=== PATIENT | male | born 1950 ===

== ENCOUNTER 2019-10-07 19:49 | Inpatient (IN) ==
[2019-10-07] MEDS ORDERED: DEXTROSE 50% 25 GM/50 ML SYRINGE IV PRN (21:52)
[2019-10-07] MEDS ORDERED: DEXTROSE 50% 25 GM/50 ML VIAL IV PRN (21:52)
[2019-10-07] MEDS ORDERED: ACETAMINOPHEN 325 MG TABLET PO PRN (21:52)
[2019-10-07] MEDS ORDERED: GLUCAGON 1 MG VIAL IM PRN (21:52)
[2019-10-07] MEDS ORDERED: ONDANSETRON 4 MG/2 ML VIAL IV PRN (21:52)
[2019-10-07] MEDS ORDERED: DEXTROSE 10% 250 ML BAG IV PRN (22:38)
[2019-10-07] MEDS: INSULIN REGULAR 100 UNIT/ML SUBCUT SCH (22:43)
[2019-10-07] MEDS ORDERED: TICAGRELOR 90 MG TABLET PO ONE (22:46)
[2019-10-07] MEDS ORDERED: LIDOCAINE 1% 20 ML VIAL ONE (23:12)
[2019-10-07] MEDS ORDERED: fentaNYL 100 MCG/2 ML VIAL ONE (23:12)
[2019-10-07] MEDS ORDERED: MIDAZOLAM 2 MG/2 ML VIAL ONE (23:12)
[2019-10-07] MEDS ORDERED: HEPARIN/NACL 0.9% 2 UNITS/ML 1,500 ML IV ONE (23:12)
[2019-10-08] MEDS: NITROGLYCERIN 2% OINT 1 INCH/GM PACK TOP SCH ×4 (00:30→18:10)
[2019-10-08] MEDS ORDERED: SODIUM CHLORIDE 0.9% 1,000 ML IV SCH (00:30)
[2019-10-08 01:15] LABS: Troponin I 10.3 NG/ML (0.00-0.045)
[2019-10-08 05:49] LABS: Troponin I 11.4 NG/ML (0.00-0.045)
[2019-10-08 07:03] LABS: Basophils # 0.1 10*3/uL (0.0-0.2); Basophils % 0.6 % (0.0-0.8); Eosinophils # 0.1 10*3/uL (0.0-0.87); Eosinophils % 0.7 % (0.00-10.9); Hematocrit 32.5 VOL% (42.0-52.0); Hemoglobin 10.4 GM/DL (14.0-18.0); Immature Granulocytes % 0.4 %; Immature Granulocytes Absolute 0.05 #; Lymphocytes # 1.1 10*3/uL (1.4-4.0); Lymphocytes % 9.2 % (21.2-54.2); Mean Platelet Volume 10.4 FL (9.6-12.0); Monocytes % 9.7 % (1.7-12.7); Neutrophils % 79.4 % (38.7-73.9); Platelet Count 286 T/CUMM (130-400); Red Blood Count 3.61 MC/CUMM (3.8-5.5); Red Cell Distribution Width 14.7 % (9.3-17.3); White Blood Count 12.2 T/CUMM (4-12)
[2019-10-08] MEDS: INSULIN REGULAR 100 UNIT/ML SUBCUT SCH ×4 (07:21→21:42)
[2019-10-08 07:31] LABS: Albumin 2.8 G/DL (3.4-5.0); Bilirubin,Total 0.5 MG/DL (0.2-1.0); Calcium 7.8 MG/DL (8.5-10.1); Osmolality,Calculated 280.8 MOS/KG (273-304); Risk Ratio 2.1; Total Protein 6.9 G/DL (6.4-8.3); VLDL CHOLESTEROL 13.6 MG/DL
[2019-10-08] MEDS ORDERED: ALBUTEROL/IPRATROPIUM 3 ML NEB RESP TX PRN ×2 (08:23→20:56)
[2019-10-08] MEDS ORDERED: ALBUTEROL/IPRATROPIUM 3 ML NEB RESP TX ONE (08:23)
[2019-10-08] MEDS ORDERED: FUROSEMIDE 40 MG/4 ML VIAL IV ONE ×2 (08:24→20:55)
[2019-10-08] MEDS: ASPIRIN EC 81 MG TABLET PO SCH (08:50)
[2019-10-08] MEDS: PANTOPRAZOLE 40 MG TABLET PO SCH (08:50)
[2019-10-08] MEDS: SPIRONOLACTONE 25 MG TABLET PO SCH (08:50)
[2019-10-08] MEDS: carvediloL 3.125 MG TABLET PO SCH ×2 (08:50→21:35)
[2019-10-08] MEDS: ENOXAPARIN 80 MG/0.8 ML SYRINGE SUBCUT SCH ×2 (08:50→21:36)
[2019-10-08] MEDS ORDERED: ASPIRIN EC 325 MG TABLET PO SCH (09:00)
[2019-10-08] MEDS ORDERED: SACUBITRIL/VALSARTAN 49-51 MG TABLET PO SCH (09:00)
[2019-10-08 11:31] LABS: Apearance,Urine Slightly Hazy (Clear); Bilirubin,Urine Negative (Negative); Blood, Urine Large mg/dL (Negative); Glucose,Urine (UA) 50 mg/dL (Negative); Ketones,Urine Negative (Negative); Mucus,Urine Occasional /LPF (Occasional); Nitrite,Urine Negative (Negative); Protein,Urine Negative; RBC,Urine 1345 /HPF (0-4); Urine Specific Gravity 1.008 (1.001-1.035); Urine Urobilinogen < 2.0 EU/DL (0.2-1.0); WBC,Urine 5 /HPF (0-6)
[2019-10-08 11:32] LABS: Urine Color Light Red (Yellow)
[2019-10-08] MEDS: MORPHINE 4 MG/1 ML VIAL IV PRN ×2 (12:50→19:25)
[2019-10-08] MEDS: ROSUVASTATIN 20 MG TABLET PO SCH (21:35)
[2019-10-08] MEDS: SACUBITRIL/VALSARTAN 49-51 MG TABLET PO SCH (21:35)
[2019-10-09] MEDS: NITROGLYCERIN 2% OINT 1 INCH/GM PACK TOP SCH ×4 (00:52→17:26)
[2019-10-09] MEDS: MORPHINE 4 MG/1 ML VIAL IV PRN (05:44)
[2019-10-09] MEDS ORDERED: HYDROmorphone 2 MG/1 ML VIAL IV PRN (08:49)
[2019-10-09] MEDS: INSULIN REGULAR 100 UNIT/ML SUBCUT SCH ×4 (08:51→21:34)
[2019-10-09] MEDS: SPIRONOLACTONE 25 MG TABLET PO SCH (08:53)
[2019-10-09] MEDS: ENOXAPARIN 80 MG/0.8 ML SYRINGE SUBCUT SCH ×2 (08:53→21:34)
[2019-10-09] MEDS: carvediloL 3.125 MG TABLET PO SCH ×2 (08:53→21:35)
[2019-10-09] MEDS: PANTOPRAZOLE 40 MG TABLET PO SCH (08:53)
[2019-10-09] MEDS: SACUBITRIL/VALSARTAN 49-51 MG TABLET PO SCH ×2 (08:53→21:35)
[2019-10-09] MEDS: ASPIRIN EC 81 MG TABLET PO SCH (08:53)
[2019-10-09] MEDS ORDERED: oxyCODONE/ACETAMINOPHEN 5-325 MG TABLET PO PRN (09:18)
[2019-10-09] MEDS ORDERED: KETOROLAC 15 MG/1 ML VIAL IV ONE (11:13)
[2019-10-09 11:44] LABS: Basophils # 0.1 10*3/uL (0.0-0.2); Basophils % 0.6 % (0.0-0.8); Eosinophils % 0.3 % (0.00-10.9); Hematocrit 31.6 VOL% (42.0-52.0); Hemoglobin 10.5 GM/DL (14.0-18.0); Immature Granulocytes % 0.5 %; Immature Granulocytes Absolute 0.07 #; Lymphocytes # 1.2 10*3/uL (1.4-4.0); Lymphocytes % 9.2 % (21.2-54.2); Mean Corpuscular HGB Conc 33.2 GM/DL (32-36); Mean Corpuscular Volume 88.5 FL (87-102); Mean Platelet Volume 10.7 FL (9.6-12.0); Monocytes % 12.4 % (1.7-12.7); Platelet Count 310 T/CUMM (130-400); Red Blood Count 3.57 MC/CUMM (3.8-5.5); Red Cell Distribution Width 14.6 % (9.3-17.3); White Blood Count 12.9 T/CUMM (4-12)
[2019-10-09 11:57] LABS: Calcium 7.6 MG/DL (8.5-10.1); Osmolality,Calculated 280.2 MOS/KG (273-304)
[2019-10-09 15:53] LABS: Cholesterol Crystals None Seen /LPF
[2019-10-09 16:25] LABS: Neutrophils,Synovial Fluid 88 %
[2019-10-09] MEDS: ROSUVASTATIN 20 MG TABLET PO SCH (21:34)
[2019-10-10] MEDS: NITROGLYCERIN 2% OINT 1 INCH/GM PACK TOP SCH ×4 (00:02→17:26)
[2019-10-10] MEDS ORDERED: GLUCAGON 1 MG VIAL IM PRN (07:20)
[2019-10-10] MEDS ORDERED: DEXTROSE 50% 25 GM/50 ML VIAL IV PRN (07:20)
[2019-10-10] MEDS ORDERED: TRIAMCINOLONE ACETONIDE 50 MG/5 ML VIAL INTRAARTIC ONE (09:11)
[2019-10-10 09:16] LABS: Basophils # 0.1 10*3/uL (0.0-0.2); Basophils % 0.4 % (0.0-0.8); Eosinophils # 0.3 10*3/uL (0.0-0.87); Eosinophils % 2.2 % (0.00-10.9); Hematocrit 31.6 VOL% (42.0-52.0); Hemoglobin 10.5 GM/DL (14.0-18.0); Immature Granulocytes % 0.3 %; Immature Granulocytes Absolute 0.03 #; Lymphocytes # 1.7 10*3/uL (1.4-4.0); Lymphocytes % 14.3 % (21.2-54.2); Mean Corpuscular HGB Conc 33.2 GM/DL (32-36); Mean Corpuscular Volume 87.3 FL (87-102); Mean Platelet Volume 10.7 FL (9.6-12.0); Monocytes % 10.2 % (1.7-12.7); Neutrophils % 72.6 % (38.7-73.9); Platelet Count 299 T/CUMM (130-400); Red Blood Count 3.62 MC/CUMM (3.8-5.5); Red Cell Distribution Width 14.5 % (9.3-17.3); White Blood Count 11.7 T/CUMM (4-12)
[2019-10-10] MEDS ORDERED: TRIAMCINOLONE ACETONIDE 40 MG/1 ML VIAL INTRAARTIC ONE (09:30)
[2019-10-10 09:36] LABS: Albumin 2.6 G/DL (3.4-5.0); Bilirubin,Total 0.5 MG/DL (0.2-1.0); Calcium 7.8 MG/DL (8.5-10.1); Total Protein 6.5 G/DL (6.4-8.3)
[2019-10-10] MEDS: SACUBITRIL/VALSARTAN 49-51 MG TABLET PO SCH ×2 (09:46→21:38)
[2019-10-10] MEDS: ASPIRIN EC 81 MG TABLET PO SCH (09:46)
[2019-10-10] MEDS: SPIRONOLACTONE 25 MG TABLET PO SCH ×2 (09:46→09:51)
[2019-10-10] MEDS: PANTOPRAZOLE 40 MG TABLET PO SCH (09:46)
[2019-10-10] MEDS: CHLORHEXIDINE 0.12% ORAL RINSE 60 ML BOTTLE SWISH/SPIT SCH ×2 (09:47→21:37)
[2019-10-10] MEDS: carvediloL 3.125 MG TABLET PO SCH ×3 (09:47→21:38)
[2019-10-10] MEDS: INSULIN REGULAR 100 UNIT/ML SUBCUT SCH ×4 (09:47→21:36)
[2019-10-10] MEDS: CHLORHEXIDINE 4% SOLN 118 ML BOTTLE TOP SCH ×3 (09:48→21:37)
[2019-10-10] MEDS ORDERED: LIDOCAINE 2% 20 ML VIAL ONE (10:01)
[2019-10-10 11:10] LABS: ABG Base Excess -2.8 MMOL/L (-2.5-2.5); ABG Oxygen Saturation 95.5 % (95-100); ABG PCO2 39.8 MM HG (35-48); ABG PH 7.358 (7.35-7.45); ABG PO2 79.9 MM HG (80-95); ABG TCO2 20.3 MMOL/L (23-27); Allen Test Positive; Pt O2 Delivery Device Room Air
[2019-10-10] MEDS: ROSUVASTATIN 20 MG TABLET PO SCH (21:37)
[2019-10-11] MEDS: NITROGLYCERIN 2% OINT 1 INCH/GM PACK TOP SCH ×3 (00:18→15:14)
[2019-10-11] MEDS: CHLORHEXIDINE 4% SOLN 118 ML BOTTLE TOP SCH (03:30)
[2019-10-11] MEDS ORDERED: VANCOMYCIN 1,000 MG VIAL ONE (04:13)
[2019-10-11] MEDS ORDERED: PAPAVERINE 60 MG/2 ML VIAL ONE (04:13)
[2019-10-11] MEDS ORDERED: VANCOMYCIN 500 MG VIAL ONE (04:13)
[2019-10-11 05:35] LABS: Basophils % 0.4 % (0.0-0.8); Eosinophils # 0.2 10*3/uL (0.0-0.87); Eosinophils % 1.8 % (0.00-10.9); Hematocrit 29.2 VOL% (42.0-52.0); Hemoglobin 9.7 GM/DL (14.0-18.0); Immature Granulocytes % 0.3 %; Immature Granulocytes Absolute 0.03 #; Lymphocytes # 1.5 10*3/uL (1.4-4.0); Lymphocytes % 14.3 % (21.2-54.2); Mean Corpuscular HGB Conc 33.2 GM/DL (32-36); Mean Corpuscular Volume 86.4 FL (87-102); Mean Platelet Volume 10.6 FL (9.6-12.0); Monocytes % 10.5 % (1.7-12.7); Neutrophils % 72.7 % (38.7-73.9); Platelet Count 312 T/CUMM (130-400); Red Blood Count 3.38 MC/CUMM (3.8-5.5); Red Cell Distribution Width 14.2 % (9.3-17.3); White Blood Count 10.6 T/CUMM (4-12)
[2019-10-11] MEDS ORDERED: SUFentanil 250 MCG/5 ML AMP ONE (05:53)
[2019-10-11] MEDS ORDERED: MIDAZOLAM 10 MG/2 ML VIAL ONE (05:53)
[2019-10-11 06:18] LABS: Calcium 7.8 MG/DL (8.5-10.1)
[2019-10-11 06:19] LABS: Osmolality,Calculated 279.4 MOS/KG (273-304)
[2019-10-11] MEDS ORDERED: CEFUROXIME INJ 1,500 MG in SYRINGE 1 EACH IV ONE (06:30)
[2019-10-11 07:49] LABS: ABG Base Excess -1.9 MMOL/L (-2.5-2.5); ABG HCO3 22.8 MMOL/L (20-26); ABG Oxygen Saturation 99.5 % (95-100); ABG PCO2 35.5 MM HG (35-48); ABG PH 7.407 (7.35-7.45); ABG TCO2 20.5 MMOL/L (23-27); Glucose Heart Surgery 146 MG/DL (74-106); Hematocrit Heart Surgery 28.5 PERCENT (42-52); Hemoglobin Heart Surgery 9.2 G/DL (14.0-18.0); PCO2 Patient Temp Arterial 35.5 MMHG; PH Patient Temp Arterial 7.407; Patient Temperature 37 CELCIUS; Sodium Heart/CVR 135 MMOL/L (135-145)
[2019-10-11] MEDS: ASPIRIN EC 81 MG TABLET PO SCH (08:11)
[2019-10-11] MEDS: SPIRONOLACTONE 25 MG TABLET PO SCH (08:11)
[2019-10-11] MEDS: INSULIN REGULAR 100 UNIT/ML SUBCUT SCH ×2 (08:11→15:13)
[2019-10-11] MEDS: SACUBITRIL/VALSARTAN 49-51 MG TABLET PO SCH (08:12)
[2019-10-11] MEDS: carvediloL 3.125 MG TABLET PO SCH (08:12)
[2019-10-11] MEDS: PANTOPRAZOLE 40 MG TABLET PO SCH (08:12)
[2019-10-11] MEDS: CHLORHEXIDINE 0.12% ORAL RINSE 60 ML BOTTLE SWISH/SPIT SCH ×2 (08:12→22:08)
[2019-10-11] MEDS ORDERED: PHENYLEPHRINE DRIP 40 MG/250 ML PREMIX IV ONE (08:24)
[2019-10-11] MEDS ORDERED: PROTAMINE SULFATE 50 MG/5 ML VIAL IV ONE ×2 (08:25→13:15)
[2019-10-11] MEDS ORDERED: ALBUMIN 5% 12.5 GM/250 ML VIAL IV ONE (08:25)
[2019-10-11] MEDS ORDERED: CALCIUM CHLORIDE 1,000 MG/10 ML SYRINGE IV ONE (08:25)
[2019-10-11] MEDS ORDERED: CALCIUM CHLORIDE 1,000 MG/10 ML VIAL IV ONE ×2 (09:00→14:02)
[2019-10-11] MEDS ORDERED: AMINOCAPROIC ACID 5,000 MG/20 ML VIAL ONE (09:00)
[2019-10-11] MEDS ORDERED: PHENYLEPHRINE 1 MG/10 ML SYRINGE IV ONE (09:00)
[2019-10-11] MEDS ORDERED: HEPARIN/NACL 0.9% 2 UNITS/ML 500 ML IV ONE (09:00)
[2019-10-11 09:13] LABS: Hematocrit Heart Surgery 21.5 PERCENT (42-52); Hemoglobin Heart Surgery 6.9 G/DL (14.0-18.0); PCO2 Patient Temp Venous 33.2 MM HG; PH Patient Temp Venous 7.456; PO2 Patient Temp Venous 41.3 MM HG; Potassium Heart/CVR 4.4 MMOL/L (3.5-5.1); VBG Base Excess -0.2 MEQ/L (0-4); VBG Oxygen Saturation 81.1 %; VBG PCO2 33.2 MMHG (41-51); VBG PH 7.456; VBG PO2 41.3 MMHG (17-40)
[2019-10-11 09:43] LABS: Hematocrit Heart Surgery 18.6 PERCENT (42-52); PCO2 Patient Temp Venous 33.5 MM HG; PH Patient Temp Venous 7.451; PO2 Patient Temp Venous 44.1 MM HG; Potassium Heart/CVR 4.7 MMOL/L (3.5-5.1); VBG Base Excess -0.4 MEQ/L (0-4); VBG Oxygen Saturation 83.8 %; VBG PCO2 33.5 MMHG (41-51); VBG PH 7.451; VBG PO2 44.1 MMHG (17-40)
[2019-10-11 09:47] LABS: Hemoglobin Heart Surgery 5.9 G/DL (14.0-18.0)
[2019-10-11 10:12] LABS: Hematocrit Heart Surgery 22.1 PERCENT (42-52); Hemoglobin Heart Surgery 7.1 G/DL (14.0-18.0); PH Patient Temp Venous 7.436; PO2 Patient Temp Venous 37.5 MM HG; Potassium Heart/CVR 4.9 MMOL/L (3.5-5.1); VBG Base Excess -0.2 MEQ/L (0-4); VBG HCO3 24.1 MEQ/L (24-28); VBG Oxygen Saturation 82.7 %; VBG PCO2 40.4 MMHG (41-51); VBG PH 7.393; VBG PO2 46.1 MMHG (17-40)
[2019-10-11] MEDS ORDERED: PHENYLEPHRINE DRIP 20 MG/250 ML PREMIX IV ONE (10:31)
[2019-10-11] MEDS ORDERED: THROMBIN TOPICAL (RECOMBINANT) 5,000 UNIT VIAL TOP ONE (10:57)
[2019-10-11 11:39] LABS: Hematocrit Heart Surgery 35.1 PERCENT (42-52); Hemoglobin Heart Surgery 11.4 G/DL (14.0-18.0); PCO2 Patient Temp Venous 30.4 MM HG; PH Patient Temp Venous 7.48; Potassium Heart/CVR 4.7 MMOL/L (3.5-5.1); VBG HCO3 23.9 MEQ/L (24-28); VBG Oxygen Saturation 73.1 %; VBG PCO2 30.4 MMHG (41-51); VBG PH 7.48
[2019-10-11] MEDS ORDERED: LIDOCAINE 2% 5 ML VIAL ONE ×2 (11:46→14:02)
[2019-10-11] MEDS ORDERED: DEXTROSE 5% KCL 20 MEQ 20 MEQ/1,000 ML BAG IV ONE (11:46)
[2019-10-11] MEDS ORDERED: MANNITOL 100 GM/500 ML BAG IV ONE (11:46)
[2019-10-11] MEDS ORDERED: HEPARIN 10,000 UNIT/10 ML VIAL ONE (11:47)
[2019-10-11] MEDS ORDERED: FUROSEMIDE 20 MG/2 ML VIAL ONE (11:47)
[2019-10-11] MEDS ORDERED: methylPREDNISolone SOD SUC 1,000 MG/8 ML VIAL ONE (11:47)
[2019-10-11] MEDS ORDERED: MAGNESIUM SULFATE 5 GM/10 ML VIAL IV ONE (11:47)
[2019-10-11] MEDS ORDERED: PROTAMINE SULFATE 250 MG/25 ML VIAL IV ONE (11:47)
[2019-10-11] MEDS ORDERED: ALBUMIN 25% 25 GM/100 ML VIAL IV ONE (11:47)
[2019-10-11] MEDS ORDERED: SODIUM BICARBONATE 50 MEQ/50 ML VIAL IV ONE (11:47)
[2019-10-11 11:59] LABS: ABG Base Excess -3.2 MMOL/L (-2.5-2.5); ABG HCO3 21.7 MMOL/L (20-26); ABG Oxygen Saturation 99.5 % (95-100); ABG PCO2 31.2 MM HG (35-48); ABG PH 7.426 (7.35-7.45); ABG TCO2 19.2 MMOL/L (23-27); Glucose Heart Surgery 260 MG/DL (74-106); Hematocrit Heart Surgery 23.9 PERCENT (42-52); Hemoglobin Heart Surgery 7.7 G/DL (14.0-18.0); Ionized Calcium Arterial 1.15 MMOL/L (1.21-1.46); PCO2 Patient Temp Arterial 31.2 MMHG; PH Patient Temp Arterial 7.426; Patient Temperature 37 CELCIUS; Potassium Heart/CVR 4.2 MMOL/L (3.5-5.1); Sodium Heart/CVR 133 MMOL/L (135-145)
[2019-10-11] MEDS ORDERED: DOBUTamine 500 MG/250 ML PREMIX IV ONE ×2 (12:57→14:02)
[2019-10-11] MEDS: PHENYLEPHRINE DRIP 40 MG/250 ML PREMIX IV PRN (13:13)
[2019-10-11] MEDS: ALBUMIN 5% 12.5 GM in PREMIX 1 EACH IV PRN ×2 (13:20→17:47)
[2019-10-11] MEDS ORDERED: ACETAMINOPHEN 650 MG SUPP RECTAL PRN (13:35)
[2019-10-11] MEDS ORDERED: CALCIUM CHLORIDE 1,000 MG/10 ML SYRINGE IV PRN (13:35)
[2019-10-11] MEDS ORDERED: MORPHINE 10 MG/1 ML VIAL IV PRN (13:35)
[2019-10-11] MEDS ORDERED: VECURONIUM 10 MG VIAL IV PRN ×2 (13:35)
[2019-10-11] MEDS ORDERED: ONDANSETRON 4 MG/2 ML VIAL IV PRN (13:35)
[2019-10-11] MEDS ORDERED: MAGNESIUM SULF RIDER 2 GM in PREMIX 1 EACH IV PRN (13:35)
[2019-10-11] MEDS ORDERED: DEXTROSE 50% 25 GM/50 ML VIAL IV PRN ×2 (13:35)
[2019-10-11] MEDS ORDERED: POTASSIUM CHLORIDE RIDER 10 MEQ in PREMIX 1 EACH IV PRN (13:35)
[2019-10-11] MEDS ORDERED: INSULIN REGULAR 100 UNIT/ML IV ONE (13:35)
[2019-10-11] MEDS ORDERED: MIDAZOLAM 10 MG/2 ML VIAL IV PRN (13:35)
[2019-10-11] MEDS ORDERED: LACTATED RINGERS 250 ML IV PRN (13:35)
[2019-10-11] MEDS ORDERED: INSULIN REGULAR 100 UNIT/ML IV PRN (13:35)
[2019-10-11] MEDS ORDERED: NITROPRUSSIDE 100 MG in DEXTROSE 5% 250 ML IV PRN (13:35)
[2019-10-11] MEDS ORDERED: CHLORHEXIDINE 4% SOLN 118 ML BOTTLE TOP PRN (13:35)
[2019-10-11] MEDS ORDERED: MAGNESIUM SULF RIDER 4 GM in PREMIX 1 EACH IV PRN (13:35)
[2019-10-11] MEDS ORDERED: SODIUM CHLORIDE 0.45% 1,000 ML IV SCH ×2 (13:35)
[2019-10-11 13:39] LABS: ABG Base Excess -4.7 MMOL/L (-2.5-2.5); ABG HCO3 20.1 MMOL/L (20-26); ABG Oxygen Saturation 96.2 % (95-100); ABG PCO2 35.4 MM HG (35-48); ABG PH 7.371 (7.35-7.45); ABG PO2 94.7 MM HG (80-95); ABG TCO2 21.1 MMOL/L (23-27); Glucose Heart Surgery 240 MG/DL (74-106); Hemoglobin Heart Surgery 7.3 G/DL (14.0-18.0); Potassium Heart/CVR 3.9 MMOL/L (3.5-5.1)
[2019-10-11 13:46] LABS: Basophils % 0.1 % (0.0-0.8); Eosinophils % 0.2 % (0.00-10.9); Hematocrit 22.2 VOL% (42.0-52.0); Immature Granulocytes % 0.7 %; Immature Granulocytes Absolute 0.11 #; Lymphocytes # 0.9 10*3/uL (1.4-4.0); Lymphocytes % 6.4 % (21.2-54.2); Mean Corpuscular HGB Conc 31.5 GM/DL (32-36); Mean Corpuscular Volume 91.4 FL (87-102); Mean Platelet Volume 10.6 FL (9.6-12.0); Monocytes % 6.3 % (1.7-12.7); Neutrophils % 86.3 % (38.7-73.9); Platelet Count 170 T/CUMM (130-400); Red Blood Count 2.43 MC/CUMM (3.8-5.5); Red Cell Distribution Width 14.6 % (9.3-17.3); White Blood Count 14.7 T/CUMM (4-12)
[2019-10-11] MEDS ORDERED: DOBUTamine 500 MG/250 ML PREMIX IV PRN (13:49)
[2019-10-11 13:56] LABS: INR 1.2; PT Patient Result 13.4 SECS (9.6-12.2); Partial Thromboplastin Time 33.2 SECS (20.8-36.0)
[2019-10-11] MEDS ORDERED: LACTATED RINGERS 1,000 ML IV ONE (14:03)
[2019-10-11] MEDS ORDERED: SEVOFLURANE 1 UNIT/15 MINUTE INH ONE (14:03)
[2019-10-11] MEDS ORDERED: ETOMIDATE 40 MG/20 ML VIAL IV ONE (14:03)
[2019-10-11] MEDS ORDERED: SODIUM CHLORIDE 0.9% 250 ML IV ONE (14:03)
[2019-10-11] MEDS ORDERED: SODIUM CHLORIDE 0.9% 300 ML IV ONE (14:03)
[2019-10-11] MEDS ORDERED: VECURONIUM 10 MG VIAL IV ONE (14:03)
[2019-10-11] MEDS ORDERED: SODIUM CHLORIDE 0.9% 1,000 ML IV ONE (14:03)
[2019-10-11 14:07] LABS: Albumin 2.1 G/DL (3.4-5.0); Osmolality,Calculated 293.5 MOS/KG (273-304); Total Protein 4.4 G/DL (6.4-8.3)
[2019-10-11 14:19] LABS: CKMB % 5.8 %
[2019-10-11 14:21] LABS: ABG Base Excess -4.6 MMOL/L (-2.5-2.5); ABG HCO3 20.6 MMOL/L (20-26); ABG Oxygen Saturation 97.7 % (95-100); ABG PCO2 38.8 MM HG (35-48); ABG PH 7.337 (7.35-7.45); ABG TCO2 19.6 MMOL/L (23-27); Glucose Heart Surgery 256 MG/DL (74-106); Hematocrit Heart Surgery 23.9 PERCENT (42-52); Hemoglobin Heart Surgery 7.7 G/DL (14.0-18.0); Potassium Heart/CVR 4.2 MMOL/L (3.5-5.1)
[2019-10-11 14:27] LABS: Troponin I 21.2 NG/ML (0.00-0.045)
[2019-10-11] MEDS: LACTATED RINGERS 1,000 ML IV PRN ×2 (15:00→18:00)
[2019-10-11] MEDS: INSULIN REGULAR DRIP 100 ML IV SCH (15:04)
[2019-10-11 15:11] LABS: ABG Base Excess -5.8 MMOL/L (-2.5-2.5); ABG HCO3 19.6 MMOL/L (20-26); ABG Oxygen Saturation 96.8 % (95-100); ABG PH 7.282 (7.35-7.45); ABG PO2 95.2 MM HG (80-95); ABG TCO2 19.1 MMOL/L (23-27); Glucose Heart Surgery 266 MG/DL (74-106); Hematocrit Heart Surgery 31.5 PERCENT (42-52); Hemoglobin Heart Surgery 10.2 G/DL (14.0-18.0); Potassium Heart/CVR 4.3 MMOL/L (3.5-5.1)
[2019-10-11] MEDS: SODIUM CHLORIDE 0.9% 1,000 ML IV SCH (15:13)
[2019-10-11 16:45] LABS: ABG Base Excess -4.9 MMOL/L (-2.5-2.5); ABG HCO3 20.3 MMOL/L (20-26); ABG Oxygen Saturation 96.2 % (95-100); ABG PCO2 40.2 MM HG (35-48); ABG PH 7.322 (7.35-7.45); ABG PO2 83.1 MM HG (80-95); ABG TCO2 18.9 MMOL/L (23-27); Glucose Heart Surgery 262 MG/DL (74-106); Hematocrit Heart Surgery 33.9 PERCENT (42-52); Potassium Heart/CVR 3.9 MMOL/L (3.5-5.1)
[2019-10-11] MEDS: MIDAZOLAM 2 MG/2 ML VIAL IV PRN ×2 (17:47→19:25)
[2019-10-11 18:12] LABS: ABG Base Excess -4.6 MMOL/L (-2.5-2.5); ABG HCO3 20.6 MMOL/L (20-26); ABG Oxygen Saturation 96.4 % (95-100); ABG PCO2 42.8 MM HG (35-48); ABG PH 7.309 (7.35-7.45); ABG PO2 85.7 MM HG (80-95); ABG TCO2 19.8 MMOL/L (23-27); Glucose Heart Surgery 232 MG/DL (74-106); Hematocrit Heart Surgery 31.1 PERCENT (42-52); Hemoglobin Heart Surgery 10.1 G/DL (14.0-18.0); Potassium Heart/CVR 3.7 MMOL/L (3.5-5.1)
[2019-10-11] MEDS ORDERED: FUROSEMIDE 40 MG/4 ML VIAL IV PRN (19:42)
[2019-10-11 21:21] LABS: ABG Base Excess -2.9 MMOL/L (-2.5-2.5); ABG Oxygen Saturation 97.3 % (95-100); ABG PCO2 39.4 MM HG (35-48); ABG PO2 90.6 MM HG (80-95); ABG TCO2 20.1 MMOL/L (23-27); Glucose Heart Surgery 200 MG/DL (74-106); Hematocrit Heart Surgery 33.2 PERCENT (42-52); Hemoglobin Heart Surgery 10.8 G/DL (14.0-18.0); Potassium Heart/CVR 3.8 MMOL/L (3.5-5.1)
[2019-10-11] MEDS: CEFUROXIME INJ 1,500 MG in SYRINGE 1 EACH IV SCH (22:06)
[2019-10-11] MEDS: POTASSIUM CHLORIDE RIDER 20 MEQ in PREMIX 1 EACH IV PRN (22:06)
[2019-10-12 00:14] LABS: ABG Base Excess -2.1 MMOL/L (-2.5-2.5); ABG HCO3 22.5 MMOL/L (20-26); ABG Oxygen Saturation 96.3 % (95-100); ABG PCO2 37.9 MM HG (35-48); ABG PH 7.391 (7.35-7.45); ABG PO2 90.6 MM HG (80-95); ABG TCO2 23.6 MMOL/L (23-27); Glucose Heart Surgery 144 MG/DL (74-106); Hemoglobin Heart Surgery 10.8 G/DL (14.0-18.0); Potassium Heart/CVR 4.4 MMOL/L (3.5-5.1)
[2019-10-12 04:26] LABS: ABG Base Excess -2.1 MMOL/L (-2.5-2.5); ABG HCO3 22.6 MMOL/L (20-26); ABG Oxygen Saturation 97.2 % (95-100); ABG PCO2 37.3 MM HG (35-48); ABG PH 7.388 (7.35-7.45); ABG PO2 91.9 MM HG (80-95); ABG TCO2 20.3 MMOL/L (23-27); Glucose Heart Surgery 122 MG/DL (74-106); Hematocrit Heart Surgery 32.3 PERCENT (42-52); Hemoglobin Heart Surgery 10.4 G/DL (14.0-18.0); Potassium Heart/CVR 4.1 MMOL/L (3.5-5.1)
[2019-10-12 04:33] LABS: Basophils % 0.1 % (0.0-0.8); Hemoglobin 10.2 GM/DL (14.0-18.0); Immature Granulocytes % 0.4 %; Immature Granulocytes Absolute 0.06 #; Lymphocytes # 0.6 10*3/uL (1.4-4.0); Lymphocytes % 4.1 % (21.2-54.2); Mean Corpuscular HGB Conc 32.9 GM/DL (32-36); Mean Corpuscular Volume 87.6 FL (87-102); Mean Platelet Volume 10.8 FL (9.6-12.0); NRBC # 0.04 10*3/uL; Neutrophils % 87.4 % (38.7-73.9); Platelet Count 171 T/CUMM (130-400); Red Blood Count 3.54 MC/CUMM (3.8-5.5); Red Cell Distribution Width 14.9 % (9.3-17.3); White Blood Count 13.9 T/CUMM (4-12)
[2019-10-12 04:50] LABS: Albumin 2.8 G/DL (3.4-5.0); Bilirubin,Direct 0.24 MG/DL (0.0-0.20); Bilirubin,Total 0.6 MG/DL (0.2-1.0); Calcium 7.8 MG/DL (8.5-10.1); Total Protein 5.5 G/DL (6.4-8.3)
[2019-10-12 04:51] LABS: CKMB % 4.3 %
[2019-10-12 04:52] LABS: Hypochromasia 1+; Lymphocytes 1 % (20-55); Platelet Estimate Adequate; Segmented Neutrophils 89 % (50-85); Total Cells Counted 100
[2019-10-12] MEDS: PHENYLEPHRINE DRIP 40 MG/250 ML PREMIX IV PRN (05:32)
[2019-10-12] MEDS: MORPHINE 4 MG/1 ML VIAL IV PRN ×2 (06:19→21:27)
[2019-10-12] MEDS: POTASSIUM CHLORIDE RIDER 20 MEQ in PREMIX 1 EACH IV PRN (06:20)
[2019-10-12] MEDS: CEFUROXIME INJ 1,500 MG in SYRINGE 1 EACH IV SCH ×2 (08:40→21:23)
[2019-10-12] MEDS: MIDAZOLAM 2 MG/2 ML VIAL IV PRN (08:49)
[2019-10-12] MEDS: CHLORHEXIDINE 0.12% ORAL RINSE 60 ML BOTTLE SWISH/SPIT SCH ×2 (09:31→21:24)
[2019-10-12 11:12] LABS: ABG Base Excess -3.1 MMOL/L (-2.5-2.5); ABG HCO3 21.5 MMOL/L (20-26); ABG Oxygen Saturation 96.2 % (95-100); ABG PCO2 36.5 MM HG (35-48); ABG PH 7.387 (7.35-7.45); ABG PO2 90.6 MM HG (80-95); ABG TCO2 22.6 MMOL/L (23-27); Glucose Heart Surgery 137 MG/DL (74-106); Hemoglobin Heart Surgery 10.4 G/DL (14.0-18.0); Potassium Heart/CVR 4.5 MMOL/L (3.5-5.1)
[2019-10-12] MEDS: INSULIN REGULAR 100 UNIT/ML SUBCUT SCH ×3 (12:03→21:23)
[2019-10-12 12:34] LABS: ABG Base Excess -3.4 MMOL/L (-2.5-2.5); ABG HCO3 21.1 MMOL/L (20-26); ABG Oxygen Saturation 97.7 % (95-100); ABG PH 7.386 (7.35-7.45); ABG PO2 120.5 MM HG (80-95); ABG TCO2 22.2 MMOL/L (23-27); Glucose Heart Surgery 151 MG/DL (74-106); Hemoglobin Heart Surgery 10.4 G/DL (14.0-18.0); Potassium Heart/CVR 4.4 MMOL/L (3.5-5.1)
[2019-10-12] MEDS: ASCORBIC ACID 500 MG TABLET PO SCH ×2 (12:44→21:24)
[2019-10-12] MEDS ORDERED: SODIUM CHLOR 0.45% KCL 20 MEQ 20 MEQ/1,000 ML BAG IV SCH (13:30)
[2019-10-12] MEDS: INSULIN REGULAR DRIP 100 ML IV SCH (13:53)
[2019-10-12 15:53] LABS: CKMB % 4.4 %
[2019-10-12 15:54] LABS: Troponin I 10.3 NG/ML (0.00-0.045)
[2019-10-12] MEDS: ROSUVASTATIN 20 MG TABLET PO SCH (21:24)
[2019-10-13] MEDS: INSULIN REGULAR 100 UNIT/ML SUBCUT SCH ×3 (00:50→08:06)
[2019-10-13 05:26] LABS: Basophils % 0.1 % (0.0-0.8); Hematocrit 28.9 VOL% (42.0-52.0); Hemoglobin 9.5 GM/DL (14.0-18.0); Immature Granulocytes % 0.5 %; Immature Granulocytes Absolute 0.07 #; Lymphocytes # 1.6 10*3/uL (1.4-4.0); Lymphocytes % 10.5 % (21.2-54.2); Mean Corpuscular HGB Conc 32.9 GM/DL (32-36); Mean Corpuscular Volume 88.9 FL (87-102); Mean Platelet Volume 11.4 FL (9.6-12.0); Monocytes % 13.5 % (1.7-12.7); NRBC # 0.09 10*3/uL; Neutrophils % 75.4 % (38.7-73.9); Platelet Count 149 T/CUMM (130-400); Red Blood Count 3.25 MC/CUMM (3.8-5.5); Red Cell Distribution Width 15.2 % (9.3-17.3); White Blood Count 15.4 T/CUMM (4-12)
[2019-10-13 05:52] LABS: Albumin 2.7 G/DL (3.4-5.0); Bilirubin,Direct 0.22 MG/DL (0.0-0.20); Calcium 7.9 MG/DL (8.5-10.1); Osmolality,Calculated 298.3 MOS/KG (273-304); Total Protein 5.9 G/DL (6.4-8.3)
[2019-10-13 05:55] LABS: CKMB % 2.3 %
[2019-10-13 05:58] LABS: Troponin I 11.1 NG/ML (0.00-0.045)
[2019-10-13] MEDS: ASCORBIC ACID 500 MG TABLET PO SCH ×2 (08:06→21:25)
[2019-10-13] MEDS: CHLORHEXIDINE 0.12% ORAL RINSE 60 ML BOTTLE SWISH/SPIT SCH ×3 (08:07→21:26)
[2019-10-13] MEDS ORDERED: METOPROLOL TARTRATE 25 MG TABLET PO SCH (09:00)
[2019-10-13] MEDS ORDERED: MAGNESIUM SULF RIDER 2 GM in PREMIX 1 EACH IV PRN (10:57)
[2019-10-13] MEDS ORDERED: MAGNESIUM HYDROXIDE SUSP 30 ML UDCUP PO PRN (10:57)
[2019-10-13] MEDS ORDERED: POTASSIUM CHLORIDE 20 MEQ TABLET PO PRN (10:57)
[2019-10-13] MEDS ORDERED: ACETAMINOPHEN 325 MG TABLET PO PRN (10:57)
[2019-10-13] MEDS ORDERED: ALUMINUM/MAGNES/SIMETH MAX STR 30 ML UDCUP PO PRN (10:57)
[2019-10-13] MEDS ORDERED: MAGNESIUM SULF RIDER 4 GM in PREMIX 1 EACH IV PRN (10:57)
[2019-10-13] MEDS ORDERED: DEXTROSE 50% 25 GM/50 ML VIAL IV PRN (10:57)
[2019-10-13] MEDS ORDERED: SODIUM CHLOR 0.45% KCL 20 MEQ 20 MEQ/1,000 ML BAG IV SCH (10:57)
[2019-10-13] MEDS ORDERED: ZALEPLON 5 MG CAPSULE PO PRN (10:57)
[2019-10-13] MEDS ORDERED: GLUCAGON 1 MG VIAL IM PRN ×2 (10:57→13:01)
[2019-10-13] MEDS: PIOGLITAZONE 45 MG TABLET PO SCH (11:38)
[2019-10-13] MEDS: MULTIVITAMIN (BEROCCA) TABLET PO SCH (11:38)
[2019-10-13] MEDS: PANTOPRAZOLE 40 MG TABLET PO SCH (11:39)
[2019-10-13] MEDS: FERROUS SULFATE 325 MG TABLET PO SCH (11:39)
[2019-10-13] MEDS: CYANOCOBALAMIN 500 MCG TABLET PO SCH (11:39)
[2019-10-13] MEDS: DOCUSATE SODIUM 100 MG CAPSULE PO SCH (11:39)
[2019-10-13] MEDS: ASPIRIN EC 81 MG TABLET PO SCH (11:39)
[2019-10-13] MEDS ORDERED: DEXTROSE 10% 250 ML BAG IV PRN (13:01)
[2019-10-13] MEDS: CLOTRIMAZOLE 1% CREAM 15 GM TUBE TOP SCH ×2 (13:04→21:26)
[2019-10-13] MEDS: INSULIN LISPRO 100 UNIT/ML SUBCUT SCH ×2 (16:53→21:25)
[2019-10-13] MEDS: ROSUVASTATIN 20 MG TABLET PO SCH (21:25)
[2019-10-14 04:22] LABS: Basophils % 0.1 % (0.0-0.8); Eosinophils # 0.2 10*3/uL (0.0-0.87); Eosinophils % 1.2 % (0.00-10.9); Hematocrit 27.4 VOL% (42.0-52.0); Hemoglobin 8.8 GM/DL (14.0-18.0); Immature Granulocytes % 0.5 %; Immature Granulocytes Absolute 0.08 #; Lymphocytes # 1.7 10*3/uL (1.4-4.0); Lymphocytes % 10.8 % (21.2-54.2); Mean Corpuscular HGB Conc 32.1 GM/DL (32-36); Mean Corpuscular Volume 89.3 FL (87-102); Mean Platelet Volume 11.7 FL (9.6-12.0); Monocytes % 11.8 % (1.7-12.7); NRBC # 0.07 10*3/uL; Neutrophils % 75.6 % (38.7-73.9); Platelet Count 149 T/CUMM (130-400); Red Blood Count 3.07 MC/CUMM (3.8-5.5); Red Cell Distribution Width 14.9 % (9.3-17.3); White Blood Count 16.1 T/CUMM (4-12)
[2019-10-14 04:34] LABS: Albumin 2.5 G/DL (3.4-5.0); Bilirubin,Direct 0.22 MG/DL (0.0-0.20); Bilirubin,Total 0.6 MG/DL (0.2-1.0); Calcium 7.7 MG/DL (8.5-10.1); Osmolality,Calculated 290.8 MOS/KG (273-304); Total Protein 5.8 G/DL (6.4-8.3)
[2019-10-14 04:36] LABS: Alanine Aminotransferase 46 U/L (16-61); Albumin 2.6 G/DL (3.4-5.0); Alkaline Phosphatase 96 U/L (45-117); Aspartate Amino Transferase 44 U/L (0-37); Bilirubin,Indirect 1.3 MG/DL (0.0-1.0); Total Protein 5.8 G/DL (6.4-8.3)
[2019-10-14] MEDS ORDERED: FUROSEMIDE 40 MG/4 ML VIAL IV ONE (06:00)
[2019-10-14] MEDS: INSULIN LISPRO 100 UNIT/ML SUBCUT SCH ×4 (08:26→22:44)
[2019-10-14] MEDS: DOCUSATE SODIUM 100 MG CAPSULE PO SCH (08:43)
[2019-10-14] MEDS: CYANOCOBALAMIN 500 MCG TABLET PO SCH (08:43)
[2019-10-14] MEDS: ASCORBIC ACID 500 MG TABLET PO SCH ×2 (08:44→22:44)
[2019-10-14] MEDS: FERROUS SULFATE 325 MG TABLET PO SCH (08:44)
[2019-10-14] MEDS: PIOGLITAZONE 45 MG TABLET PO SCH (08:44)
[2019-10-14] MEDS: MULTIVITAMIN (BEROCCA) TABLET PO SCH (08:44)
[2019-10-14] MEDS: ASPIRIN EC 81 MG TABLET PO SCH (08:44)
[2019-10-14] MEDS: PANTOPRAZOLE 40 MG TABLET PO SCH (08:44)
[2019-10-14] MEDS: CHLORHEXIDINE 0.12% ORAL RINSE 60 ML BOTTLE SWISH/SPIT SCH ×2 (08:44→22:44)
[2019-10-14] MEDS ORDERED: lisinopriL 5 MG TABLET PO SCH (09:00)
[2019-10-14] MEDS: CLOTRIMAZOLE 1% CREAM 15 GM TUBE TOP SCH ×2 (09:36→22:45)
[2019-10-14] MEDS: carvediloL 3.125 MG TABLET PO SCH ×2 (09:44→22:44)
[2019-10-14] MEDS: oxyCODONE/ACETAMINOPHEN 5-325 MG TABLET PO PRN ×2 (11:40→17:49)
[2019-10-14] MEDS: ONDANSETRON 4 MG/2 ML VIAL IV PRN (16:28)
[2019-10-14] MEDS: ROSUVASTATIN 20 MG TABLET PO SCH (22:44)
[2019-10-15 05:39] LABS: Basophils % 0.2 % (0.0-0.8); Eosinophils # 0.3 10*3/uL (0.0-0.87); Eosinophils % 1.7 % (0.00-10.9); Hemoglobin 8.7 GM/DL (14.0-18.0); Immature Granulocytes % 0.6 %; Lymphocytes # 1.8 10*3/uL (1.4-4.0); Lymphocytes % 11.3 % (21.2-54.2); Mean Corpuscular HGB Conc 32.2 GM/DL (32-36); Mean Corpuscular Volume 91.2 FL (87-102); Mean Platelet Volume 11.7 FL (9.6-12.0); Monocytes % 10.4 % (1.7-12.7); NRBC # 0.06 10*3/uL; Neutrophils % 75.8 % (38.7-73.9); Platelet Count 175 T/CUMM (130-400); Red Blood Count 2.96 MC/CUMM (3.8-5.5); Red Cell Distribution Width 14.9 % (9.3-17.3); White Blood Count 15.8 T/CUMM (4-12)
[2019-10-15 06:00] LABS: Alanine Aminotransferase 42 U/L (16-61); Albumin 2.5 G/DL (3.4-5.0); Alkaline Phosphatase 101 U/L (45-117); Aspartate Amino Transferase 35 U/L (0-37); Bilirubin,Indirect 0.4 MG/DL (0.0-1.0); Blood Urea Nitrogen 57 MG/DL (7-18); Calcium 7.5 MG/DL (8.5-10.1); Estimated Glom Filtration Rate 33 ML/MIN; Glucose 190 MG/DL (74-106); Osmolality,Calculated 295.7 MOS/KG (273-304); Total Protein 5.9 G/DL (6.4-8.3)
[2019-10-15] MEDS: INSULIN LISPRO 100 UNIT/ML SUBCUT SCH ×4 (11:16→21:59)
[2019-10-15] MEDS: carvediloL 3.125 MG TABLET PO SCH (11:17)
[2019-10-15] MEDS: PANTOPRAZOLE 40 MG TABLET PO SCH (11:19)
[2019-10-15] MEDS: oxyCODONE/ACETAMINOPHEN 5-325 MG TABLET PO PRN (11:19)
[2019-10-15] MEDS: FERROUS SULFATE 325 MG TABLET PO SCH (11:19)
[2019-10-15] MEDS: CYANOCOBALAMIN 500 MCG TABLET PO SCH (11:19)
[2019-10-15] MEDS: ASCORBIC ACID 500 MG TABLET PO SCH ×2 (11:19→21:59)
[2019-10-15] MEDS: DOCUSATE SODIUM 100 MG CAPSULE PO SCH (11:20)
[2019-10-15] MEDS: MULTIVITAMIN (BEROCCA) TABLET PO SCH (11:20)
[2019-10-15] MEDS: ASPIRIN EC 81 MG TABLET PO SCH (11:20)
[2019-10-15] MEDS: CHLORHEXIDINE 0.12% ORAL RINSE 60 ML BOTTLE SWISH/SPIT SCH ×2 (11:21→22:00)
[2019-10-15] MEDS: CLOTRIMAZOLE 1% CREAM 15 GM TUBE TOP SCH ×2 (11:21→22:00)
[2019-10-15] MEDS ORDERED: VANCOMYCIN INJ 1,250 MG in SODIUM CHLORIDE 0.9% 250 ML IV PRN (11:47)
[2019-10-15] MEDS: PIPERACILLIN/TAZOBACTAM 3,375 MG in SODIUM CHLORIDE 0.9% 100 ML IV SCH ×2 (12:05→21:58)
[2019-10-15] MEDS: ONDANSETRON 4 MG/2 ML VIAL IV PRN (12:14)
[2019-10-15] MEDS ORDERED: VANCOMYCIN INJ 1,750 MG in SODIUM CHLORIDE 0.9% 500 ML IV ONE (16:00)
[2019-10-15 19:42] LABS: Apearance,Urine Slightly Hazy (Clear); Bilirubin,Urine Negative (Negative); Blood, Urine Negative (Negative); Glucose,Urine (UA) 50 mg/dL (Negative); Ketones,Urine Negative (Negative); Mucus,Urine Occasional /LPF (Occasional); Nitrite,Urine Negative (Negative); Protein,Urine Negative; RBC,Urine 2 /HPF (0-4); Squamous Epithelial Cell,Urine Occasional /HPF (0-10); Urine Color Yellow (Yellow); Urine Specific Gravity 1.016 (1.001-1.035); WBC,Urine 3 /HPF (0-6)
[2019-10-15] MEDS: ROSUVASTATIN 20 MG TABLET PO SCH (21:59)
[2019-10-16] MEDS: PIPERACILLIN/TAZOBACTAM 3,375 MG in SODIUM CHLORIDE 0.9% 100 ML IV SCH ×3 (02:43→15:32)
[2019-10-16 06:38] LABS: Basophils % 0.2 % (0.0-0.8); Eosinophils # 0.4 10*3/uL (0.0-0.87); Eosinophils % 3.1 % (0.00-10.9); Hematocrit 25.6 VOL% (42.0-52.0); Immature Granulocytes % 0.6 %; Immature Granulocytes Absolute 0.08 #; Lymphocytes # 1.3 10*3/uL (1.4-4.0); Lymphocytes % 9.6 % (21.2-54.2); Mean Corpuscular HGB Conc 31.3 GM/DL (32-36); Mean Corpuscular Volume 93.1 FL (87-102); Mean Platelet Volume 11.2 FL (9.6-12.0); Monocytes % 10.4 % (1.7-12.7); NRBC # 0.07 10*3/uL; Neutrophils % 76.1 % (38.7-73.9); Platelet Count 220 T/CUMM (130-400); Red Blood Count 2.75 MC/CUMM (3.8-5.5); Red Cell Distribution Width 14.9 % (9.3-17.3); White Blood Count 13.1 T/CUMM (4-12)
[2019-10-16 07:10] LABS: Calcium 7.6 MG/DL (8.5-10.1); Osmolality,Calculated 295.8 MOS/KG (273-304)
[2019-10-16] MEDS ORDERED: SODIUM CHLORIDE 0.9% 1,000 ML IV PRN (08:19)
[2019-10-16] MEDS: MULTIVITAMIN (BEROCCA) TABLET PO SCH ×2 (08:40→19:17)
[2019-10-16] MEDS: ASPIRIN EC 81 MG TABLET PO SCH ×2 (08:40→19:17)
[2019-10-16] MEDS: DOCUSATE SODIUM 100 MG CAPSULE PO SCH ×2 (08:40→19:17)
[2019-10-16] MEDS: PANTOPRAZOLE 40 MG TABLET PO SCH ×2 (08:40→19:17)
[2019-10-16] MEDS: ASCORBIC ACID 500 MG TABLET PO SCH ×3 (08:40→20:33)
[2019-10-16] MEDS: FERROUS SULFATE 325 MG TABLET PO SCH ×2 (08:40→19:17)
[2019-10-16] MEDS: CYANOCOBALAMIN 500 MCG TABLET PO SCH ×2 (08:40→19:17)
[2019-10-16] MEDS: CHLORHEXIDINE 0.12% ORAL RINSE 60 ML BOTTLE SWISH/SPIT SCH ×3 (08:41→20:33)
[2019-10-16] MEDS: METOPROLOL SUCCINATE XL 25 MG TABLET PO SCH ×2 (08:42→19:17)
[2019-10-16] MEDS: INSULIN LISPRO 100 UNIT/ML SUBCUT SCH ×4 (09:40→20:33)
[2019-10-16] MEDS: CLOTRIMAZOLE 1% CREAM 15 GM TUBE TOP SCH ×2 (09:41→20:33)
[2019-10-16] MEDS ORDERED: PIPERACILLIN/TAZOBACTAM 2,250 MG in SODIUM CHLORIDE 0.9% 100 ML IV SCH (12:00)
[2019-10-16] MEDS: ROSUVASTATIN 20 MG TABLET PO SCH (20:33)
[2019-10-17 05:55] LABS: Basophils # 0.1 10*3/uL (0.0-0.2); Basophils % 0.4 % (0.0-0.8); Eosinophils # 0.5 10*3/uL (0.0-0.87); Eosinophils % 4.1 % (0.00-10.9); Hematocrit 32.4 VOL% (42.0-52.0); Hemoglobin 10.2 GM/DL (14.0-18.0); Immature Granulocytes % 0.6 %; Immature Granulocytes Absolute 0.08 #; Lymphocytes # 1.3 10*3/uL (1.4-4.0); Lymphocytes % 10.2 % (21.2-54.2); Mean Corpuscular HGB Conc 31.5 GM/DL (32-36); Mean Corpuscular Volume 91.8 FL (87-102); Mean Platelet Volume 10.5 FL (9.6-12.0); Monocytes % 11.9 % (1.7-12.7); NRBC # 0.06 10*3/uL; Neutrophils % 72.8 % (38.7-73.9); Platelet Count 255 T/CUMM (130-400); Red Blood Count 3.53 MC/CUMM (3.8-5.5); Red Cell Distribution Width 14.8 % (9.3-17.3); White Blood Count 12.5 T/CUMM (4-12)
[2019-10-17 06:27] LABS: Alanine Aminotransferase 67 U/L (16-61); Albumin 2.4 G/DL (3.4-5.0); Alkaline Phosphatase 139 U/L (45-117); Aspartate Amino Transferase 63 U/L (0-37); Bilirubin,Indirect 0.3 MG/DL (0.0-1.0); Blood Urea Nitrogen 69 MG/DL (7-18); Calcium 7.8 MG/DL (8.5-10.1); Estimated Glom Filtration Rate 32 ML/MIN; Glucose 126 MG/DL (74-106); Osmolality,Calculated 296.7 MOS/KG (273-304)
[2019-10-17] MEDS: PIPERACILLIN/TAZOBACTAM 3,375 MG in SODIUM CHLORIDE 0.9% 100 ML IV SCH ×2 (08:54→14:28)
[2019-10-17] MEDS: ASCORBIC ACID 500 MG TABLET PO SCH ×2 (08:57→21:50)
[2019-10-17] MEDS: METOPROLOL SUCCINATE XL 25 MG TABLET PO SCH (08:58)
[2019-10-17] MEDS: CLOTRIMAZOLE 1% CREAM 15 GM TUBE TOP SCH ×2 (08:58→21:51)
[2019-10-17] MEDS: ASPIRIN EC 81 MG TABLET PO SCH (08:58)
[2019-10-17] MEDS: DOCUSATE SODIUM 100 MG CAPSULE PO SCH (08:58)
[2019-10-17] MEDS: MULTIVITAMIN (BEROCCA) TABLET PO SCH (08:58)
[2019-10-17] MEDS: CYANOCOBALAMIN 500 MCG TABLET PO SCH (08:58)
[2019-10-17] MEDS: CHLORHEXIDINE 0.12% ORAL RINSE 60 ML BOTTLE SWISH/SPIT SCH ×2 (08:58→21:51)
[2019-10-17] MEDS: PANTOPRAZOLE 40 MG TABLET PO SCH (08:58)
[2019-10-17] MEDS: FERROUS SULFATE 325 MG TABLET PO SCH (08:58)
[2019-10-17] MEDS: INSULIN LISPRO 100 UNIT/ML SUBCUT SCH ×4 (08:59→21:51)
[2019-10-17] MEDS: ROSUVASTATIN 20 MG TABLET PO SCH (21:50)
[2019-10-17] MEDS: CHOLECALCIFEROL 400 UNIT TABLET PO SCH (21:50)
[2019-10-18] MEDS: PIPERACILLIN/TAZOBACTAM 3,375 MG in SODIUM CHLORIDE 0.9% 100 ML IV SCH ×2 (02:35→15:01)
[2019-10-18 06:16] LABS: Basophils % 0.4 % (0.0-0.8); Eosinophils # 0.5 10*3/uL (0.0-0.87); Hematocrit 32.4 VOL% (42.0-52.0); Hemoglobin 10.2 GM/DL (14.0-18.0); Immature Granulocytes % 0.8 %; Immature Granulocytes Absolute 0.09 #; Lymphocytes # 1.3 10*3/uL (1.4-4.0); Lymphocytes % 11.6 % (21.2-54.2); Mean Corpuscular HGB Conc 31.5 GM/DL (32-36); Mean Corpuscular Volume 91.3 FL (87-102); Mean Platelet Volume 10.3 FL (9.6-12.0); NRBC # 0.03 10*3/uL; Neutrophils % 72.2 % (38.7-73.9); Platelet Count 293 T/CUMM (130-400); Red Blood Count 3.55 MC/CUMM (3.8-5.5); Red Cell Distribution Width 14.7 % (9.3-17.3); White Blood Count 11.3 T/CUMM (4-12)
[2019-10-18 06:46] LABS: Alanine Aminotransferase 71 U/L (16-61); Albumin 2.4 G/DL (3.4-5.0); Alkaline Phosphatase 171 U/L (45-117); Aspartate Amino Transferase 58 U/L (0-37); Bilirubin,Indirect 0.8 MG/DL (0.0-1.0); Blood Urea Nitrogen 58 MG/DL (7-18); Calcium 8.2 MG/DL (8.5-10.1); Estimated Glom Filtration Rate 41 ML/MIN; Glucose 117 MG/DL (74-106); Osmolality,Calculated 293.5 MOS/KG (273-304)
[2019-10-18] MEDS: CHOLECALCIFEROL 400 UNIT TABLET PO SCH (09:27)
[2019-10-18] MEDS: DOCUSATE SODIUM 100 MG CAPSULE PO SCH (09:27)
[2019-10-18] MEDS: METOPROLOL SUCCINATE XL 25 MG TABLET PO SCH (09:27)
[2019-10-18] MEDS: CYANOCOBALAMIN 500 MCG TABLET PO SCH (09:27)
[2019-10-18] MEDS: ASPIRIN EC 81 MG TABLET PO SCH (09:28)
[2019-10-18] MEDS: FERROUS SULFATE 325 MG TABLET PO SCH (09:28)
[2019-10-18] MEDS: ASCORBIC ACID 500 MG TABLET PO SCH (09:28)
[2019-10-18] MEDS: MULTIVITAMIN (BEROCCA) TABLET PO SCH (09:28)
[2019-10-18] MEDS: PANTOPRAZOLE 40 MG TABLET PO SCH (09:28)
[2019-10-18] MEDS: INSULIN LISPRO 100 UNIT/ML SUBCUT SCH ×2 (09:54→11:40)
[2019-10-18] MEDS: CHLORHEXIDINE 0.12% ORAL RINSE 60 ML BOTTLE SWISH/SPIT SCH (11:03)
[2019-10-18] MEDS: CLOTRIMAZOLE 1% CREAM 15 GM TUBE TOP SCH (11:04)
[2019-10-18 11:53] VITALS: BP 121/68
== END 2019-10-18 16:24 | disposition home health service (06) | DRG 233 ==
LOC: SUATTDRO 21:22 → N.TELEN 21:22 → N.CC 10-08 00:50 → N.TELEN 10-08 20:13 → N.CVR 10-11 13:03 → N.ICU 10-12 13:46 → N.TELES 10-13 10:24
PROVIDERS: ADMIT Internal Medicine
PROC: CLCCHCL (ICD-10-PCS; 2019-10-07 20:45)